=== PATIENT | female | born 1960 | race Asian ===

== ENCOUNTER 2020-02-06 13:40 | Emergency (ER) | payer MEDICAID, SELFPAY ==
[~2020-02-06] VITALS: Ht 147.3 cm; Wt 49.9 kg
[2020-02-06 14:39] VITALS: BP 143/77
--- NOTE | 2020-02-06 14:42 | NUR ---
Note erika in ED - 02/06/20 at 1442 by [facility] [place]ED. NOT IN ACUTE DISTRESS. ASKED TO WAIT IN LOBBY TO BE SEEN BY .
--- NOTE | 2020-02-06 14:42 | NUR ---
PATIENT TRIAGED. NOT IN ACUTE DISTRESS. ASKED TO WAIT IN TENT TO BE SEEN BY MD.
--- NOTE | 2020-02-06 16:10 | NUR ---
Patient discharged with v/s stable. Written and verbal after care instructions given and explained. Patient alert, oriented and verbalized understanding of instructions. Ambulatory with to car. All questions addressed prior to discharge. ID band removed. Patient advised to follow up with PMD. Rx of TYLENOL, CHLORASEPTIC given. Patient educated on indication of medication including possible reaction and side effects. Opportunity to ask questions provided and answered.
[2020-02-06 16:21] VITALS: BP 143/77
== END 2020-02-06 16:10 | disposition home or self-care (01) ==
LOC: MED 13:40
DX: U07.1 COVID-19 (principal); E11.9 Type 2 diabetes mellitus without complications; Z98.890 Other specified postprocedural states
CPT/HCPCS: 71045; 99283

== ENCOUNTER 2021-03-08 13:02 | Emergency (ER) | payer MEDICAID, SELFPAY ==
--- NOTE | 2021-03-08 13:30 | NUR ---
PATIENT LEFT WITHOUT BEING SEEN BY DR. SMITH. NO FURTHER CARE PROVIDED FOR PATIENT.
== END 2021-03-08 13:30 | disposition left against medical advice (07) ==
LOC: MED 13:02
DX: Z53.21 Procedure and treatment not carried out due to patient leaving prior to being seen by health care provider (principal)

== ENCOUNTER 2022-09-24 15:11 | Emergency (ER) | payer MEDICAID ==
[~2022-09-24] VITALS: Ht 157.5 cm; Wt 59.9 kg
[2022-09-24 15:26] VITALS: BP 121/65; PULSE 79; RESP 20; TEMP 98.2; O2SAT 100
[2022-09-24 18:03] LABS: BASOPHILS % (AUTO) 0.4 % (0.0-2.0); EOSINOPHILS % (AUTO) 0.9 % (0.0-4.0); HEMATOCRIT 29.5 % (36-48); HEMOGLOBIN 9.5 g/dL (12.0-16.0); LYMPHOCYTES # (AUTO) 1.8 K/uL (2.5-16.5); LYMPHOCYTES % (AUTO) 38.9 % (20.5-51.1); MEAN CORPUSCULAR HEMOGLOBIN 30 pg (27-31); MEAN CORPUSCULAR HGB CONC 32 g/dL (33-37); MEAN CORPUSCULAR VOLUME 92.5 fL (80-94); MONOCYTES # (AUTO) 0.3 K/uL (0.8-1.0); MONOCYTES % (AUTO) 6.8 % (1.7-9.3); NEUTROPHILS # (AUTO) 2.4 K/uL (1.8-7.7); PLATELET COUNT (AUTO) 149 K/uL (140-450); RED BLOOD CELL COUNT(AUTO) 3.19 MIL/uL (4.20-5.40); WHITE BLOOD COUNT (AUTO) 4.5 K/uL (4.8-10.8)
[2022-09-24 18:12] LABS: APPEARANCE,URINE CLEAR (CLEAR); BILIRUBIN,URINE NEGATIVE (NEGATIVE); BLOOD, URINE NEGATIVE (NEGATIVE); COLOR,URINE YELLOW (YELLOW); LEUKOCYTE ESTERASE ,URINE NEGATIVE (NEGATIVE); NITRITE, URINE NEGATIVE (NEGATIVE); PH,URINE 6.5 (5.0-9.0); PROTEIN,URINE NEGATIVE (NEGATIVE); UGLUCOSE NEGATIVE (NEGATIVE); UROBILINOGEN,URINE 0.2 EU/dL (0.2 - 1)
[2022-09-24 18:15] LABS: ALBUMIN 3.5 g/dL (3.4-5.0); ANION GAP 12.2 (8-16); CALCIUM 9.1 mg/dL (8.5-10.1); CARBON DIOXIDE 30.9 mmol/L (21-32); CREATININE 0.7 mg/dL (0.6-1.3); POTASSIUM 4.1 mmol/L (3.5-5.1); TOTAL BILIRUBIN 0.4 mg/dL (0.0-1.0); TOTAL PROTEIN, SERUM 8.9 g/dL (6.4-8.2)
[2022-09-24] MEDS ORDERED: ACETAMINOPHEN 325 MG TAB PO ONE (18:50)
[2022-09-24] MEDS ORDERED: KETOROLAC 15 MG/ML VIAL IVP ONE (18:50)
[2022-09-24 23:50] VITALS: BP 121/65; PULSE 79; RESP 20; TEMP 98.2; O2SAT 100
== END 2022-09-24 23:58 | disposition home or self-care (01) ==
LOC: MED 15:11
DX: R10.30 Lower abdominal pain, unspecified (principal); M79.10 Myalgia, unspecified site; D64.9 Anemia, unspecified; M89.50 Osteolysis, unspecified site; Z79.899 Other long term (current) drug therapy
CPT/HCPCS: 36415; 74174; 80053; 81003; 83690; 85025; 96372; 99285; J1885; Q9967

== ENCOUNTER 2022-09-27 13:03 | Emergency (ER) | payer MEDICAID ==
[~2022-09-27] VITALS: Ht 144.8 cm; Wt 50.8 kg
[2022-09-27 13:26] VITALS: BP 113/64; PULSE 71; RESP 16; TEMP 98.1; O2SAT 100
[2022-09-27] MEDS ORDERED: ONDANSETRON 4 MG ODT PO ONE (16:15)
[2022-09-27] MEDS ORDERED: DICYCLOMINE HCL LIQUID 20 MG, ALUMINUM HYD/MAG/SIMETHICONE 30 ML, LIDOCAINE VISCOUS 2% ... PO ONE ×3 (16:15)
[2022-09-27 17:02] LABS: BASOPHILS % (AUTO) 0.3 % (0.0-2.0); EOSINOPHILS % (AUTO) 0.6 % (0.0-4.0); HEMATOCRIT 29.3 % (36-48); HEMOGLOBIN 9.5 g/dL (12.0-16.0); LYMPHOCYTES # (AUTO) 1.8 K/uL (2.5-16.5); LYMPHOCYTES % (AUTO) 40.1 % (20.5-51.1); MEAN CORPUSCULAR HEMOGLOBIN 30 pg (27-31); MEAN CORPUSCULAR HGB CONC 33 g/dL (33-37); MEAN CORPUSCULAR VOLUME 91.6 fL (80-94); MONOCYTES # (AUTO) 0.3 K/uL (0.8-1.0); MONOCYTES % (AUTO) 5.9 % (1.7-9.3); NEUTROPHILS # (AUTO) 2.4 K/uL (1.8-7.7); NEUTROPHILS % (AUTO) 53.1 % (42.2-75.2); PLATELET COUNT (AUTO) 150 K/uL (140-450); RED CELL DISTRIBUTION WIDTH 17.2 % (11.6-13.7); WHITE BLOOD COUNT (AUTO) 4.6 K/uL (4.8-10.8)
[2022-09-27] MEDS ORDERED: DICYCLOMINE HCL LIQUID 10 MG/5 ML UDC ONE (17:09)
[2022-09-27] MEDS ORDERED: ALUMINUM HYD/MAG/SIMETHICONE 30 ML UDC ONE (17:09)
[2022-09-27 17:19] LABS: ALANINE AMINOTRANSFERASE 22 U/L (12-78); ALBUMIN 3.5 g/dL (3.4-5.0); ALKALINE PHOSPHATASE 79 U/L (50-136); ANION GAP 13.2 (8-16); ASPARTATE AMINOTRANSFERASE 20 U/L (15-37); CALCIUM 9.1 mg/dL (8.5-10.1); CARBON DIOXIDE 27.5 mmol/L (21-32); CHLORIDE 101 mmol/L (98-107); CREATININE 0.6 mg/dL (0.6-1.3); GFR ARICAN-AMERICAN 129 mL/min (>90); GFR NON ARICAN-AMERICAN 107 mL/min (>90); GLUCOSE 94 mg/dL (74-106); LIPASE 93 U/L (73-393); POTASSIUM 3.7 mmol/L (3.5-5.1); SODIUM SERUM 138 mmol/L (136-145); TOTAL BILIRUBIN 0.5 mg/dL (0.0-1.0); TOTAL PROTEIN, SERUM 8.9 g/dL (6.4-8.2); UREA NITROGEN, BLOOD 7 mg/dL (7-18)
[2022-09-27 17:54] LABS: APPEARANCE,URINE CLEAR (CLEAR); BILIRUBIN,URINE NEGATIVE (NEGATIVE); BLOOD, URINE NEGATIVE (NEGATIVE); COLOR,URINE YELLOW (YELLOW); LEUKOCYTE ESTERASE ,URINE NEGATIVE (NEGATIVE); NITRITE, URINE NEGATIVE (NEGATIVE); PROTEIN,URINE TRACE (NEGATIVE); UGLUCOSE NEGATIVE (NEGATIVE); UROBILINOGEN,URINE 0.2 EU/dL (0.2 - 1)
[2022-09-27] MEDS ORDERED: MAG355OR2 PO (18:04)
[2022-09-27] MEDS ORDERED: ONDA-188 PO (18:04)
[2022-09-27] MEDS ORDERED: FAMO-90 PO (18:04)
[2022-09-27 18:20] VITALS: BP 112/60; PULSE 71; RESP 16; TEMP 98.1; O2SAT 100
== END 2022-09-27 18:20 | disposition home or self-care (01) ==
LOC: MED 13:03
DX: R10.84 Generalized abdominal pain (principal); R11.10 Vomiting, unspecified; R93.89 Abnormal findings on diagnostic imaging of other specified body structures; Z79.899 Other long term (current) drug therapy; Z90.710 Acquired absence of both cervix and uterus; Z20.822 Contact with and (suspected) exposure to COVID-19
CPT/HCPCS: 36415; 71045; 80053; 81003; 83690; 84484; 85025; 87426; 93005; 99285; Q0162